=== PATIENT | female | born 1950 | race Caucasian/White ===

== ENCOUNTER → 2016-07-19 | Outpatient (CLI) | payer OTHER ==
[~2016-07-19] MED LIST: ACAI BERRY; ASCA500 PO; BLACK COHASH; CETI10TA84 PO; LISI-725 PO; MULT-506 PO
== END | disposition home or self-care (01) ==
LOC: C.LAB1850 13:44
PROVIDERS: ATTEND Internal Medicine Endocrinology, Diabetes & Metabolism
DX: M85.80 Other specified disorders of bone density and structure, unspecified site (principal); E55.9 Vitamin D deficiency, unspecified; E78.5 Hyperlipidemia, unspecified

== ENCOUNTER → 2016-10-21 | Outpatient (CLI) | payer OTHER ==
--- NOTE | 2016-10-22 09:04 | DIAGNOSTIC IMAGING REPORT ---
PARATHYROID IMAGING HISTORY: Osteopenia. TECHNIQUE: 15 minutes and 3 hours following the intravenous administration of 21 mCi of technetium 99 M Cardiolite, anterior, oblique, and SPECT imaging of the neck and chest was performed. COMPARISON STUDY: None. FINDINGS: Initial images demonstrate nearly homogeneous uptake throughout the thyroid gland. There may be a small focus of increased radiotracer uptake seen within the lower pole of the right thyroid gland. However, delayed sequences demonstrate complete washout. There are no areas of retained radiotracer within the neck or chest to suggest a parathyroid adenoma. IMPRESSION: No scintigraphic evidence for a parathyroid adenoma as described above. Electronically signed by: Thiago Darden M.D. 10/22/2016 9:02 AM Dictated Date/Time: 10/22/2016 8:57 AM
== END | disposition home or self-care (01) ==
LOC: C.NUCL 14:58
PROVIDERS: ATTEND Internal Medicine Endocrinology, Diabetes & Metabolism
DX: E21.3 Hyperparathyroidism, unspecified (principal); M85.80 Other specified disorders of bone density and structure, unspecified site

== ENCOUNTER → 2017-12-14 | Outpatient (CLI) | payer OTHER | END | disposition home or self-care (01) | LOC: C.LAB1850 13:11 | PROVIDERS: ATTEND Internal Medicine Endocrinology, Diabetes & Metabolism | DX: M85.80 Other specified disorders of bone density and structure, unspecified site (principal); E55.9 Vitamin D deficiency, unspecified; E21.3 Hyperparathyroidism, unspecified ==